=== PATIENT | male | born 1960 | race Caucasian/White ===

== ENCOUNTER 2017-11-05 06:14 | Inpatient (IN) ==
[2017-11-01 13:26] LABS: Blood Urea Nitrogen 14 mg/dl (6-20)
[2017-11-01 13:29] LABS: Basophils # (Auto) 0 K/mcL (0.0-0.3); Basophils % (Auto) 0.5 % (0.0-2.0); Eosinophils # (Auto) 0.1 K/mcL (0.0-0.7); Eosinophils % (Auto) 1.7 % (0.0-7.0); Granulocytes % (Auto) 51.2 % (38.0-78.0); Lymphocytes % (Auto) 26.2 % (15.5-49.0); Mean Cell Volume 95.1 fL (80.0-100.0); Mean Corpuscular HGB Conc 35.2 g/dL (31.0-36.0); Mean Corpuscular Hemoglobin 33.4 pg (26.0-34.0); Monocytes # (Auto) 0.8 K/mcL (0.1-0.9); Monocytes % (Auto) 20.4 % (1.0-12.0); Platelet Count 179 K/mcL (140-440); RBC 4.07 M/mcL (4.50-5.90); Red Cell Distribution Width 12.3 % (11.5-14.5)
[~2017-11-05 06:14] MED LIST: ACETAMINOPHEN 500 MG TABLET PO SCH; CELECOXIB 200 MG CAPSULE PO SCH; PREGABALIN 75 MG CAPSULE PO SCH; ceFAZolin 1 GM VIAL IV SCH; oxyCODONE 10 MG TAB.ER.12H PO SCH
[2017-11-05 08:18] LABS: Appearance,Urine CLEAR; Bilirubin,Urine NEG (NEG); Color,Urine YELLOW; Glucose,Urine (UA) NEGATIVE (NEG); Leukocyte Esterase,Urine NEG /uL (NEG); Nitrate,Urine NEG (NEG); Protein,Urine NEG (NEG); Specific Gravity,Urine 1.013 (1.000-1.035); Urine Blood NEG mg/dL (<0.03); Urobilinogen,Urine NEG (NEG)
[2017-11-05] MEDS ORDERED: KETOROLAC 30 MG, ROPIVACAINE HCL/PF 49.5 ML, EPINEPHrine 0.5 MG, 0.9 % SODIUM CHLORIDE ... IJ ONE (08:51)
[2017-11-05] MEDS ORDERED: GENTAMICIN SULFATE 800 MG/20 ML VIAL IR ONE (08:55)
[2017-11-05] MEDS ORDERED: TRANEXAMIC ACID 1,000 MG/10 ML VIAL IV ONE (09:45)
[2017-11-05] MEDS ORDERED: ePHEDrine 50 MG/ML AMPUL IV ONE (09:45)
[2017-11-05] MEDS ORDERED: fentaNYL 100 MCG/2 ML VIAL IV ONE (09:45)
[2017-11-05] MEDS ORDERED: DEXAMETHASONE 10 MG/ML VIAL IV ONE (09:45)
[2017-11-05] MEDS ORDERED: GLYCOPYRROLATE 0.2 MG/ML VIAL IV ONE (09:45)
[2017-11-05] MEDS ORDERED: PROPOFOL 200 MG/20 ML VIAL IV ONE (09:45)
[2017-11-05] MEDS ORDERED: PHENYLEPHRINE 10 MG/ML VIAL IV ONE (09:45)
[2017-11-05] MEDS ORDERED: ONDANSETRON 4 MG/2 ML VIAL IV ONE (09:45)
[2017-11-05] MEDS ORDERED: LIDOCAINE HCL/PF 100 MG/5 ML SYRINGE IV ONE (09:45)
[2017-11-05] MEDS ORDERED: MIDAZOLAM 2 MG/2 ML VIAL IV ONE (09:45)
[2017-11-05] MEDS ORDERED: LACTATED RINGERS 250 ML IV PRN (10:51)
[2017-11-05] MEDS ORDERED: MEPERIDINE 25 MG/ML SYRINGE IV PRN (10:51)
[2017-11-05] MEDS ORDERED: ONDANSETRON 4 MG/2 ML VIAL IV PRN ×2 (10:51→11:28)
[2017-11-05] MEDS ORDERED: fentaNYL 100 MCG/2 ML VIAL IV PRN (10:51)
[2017-11-05] MEDS ORDERED: PROMETHAZINE 25 MG/ML VIAL IV PRN (10:51)
[2017-11-05] MEDS ORDERED: ACETAMINOPHEN 1,000 MG/100 ML BOTTLE IV ONE (10:51)
[2017-11-05] MEDS ORDERED: IPRATROPIUM/ALBUTEROL 3 ML AMPUL.NEB NEB PRN (10:51)
[2017-11-05] MEDS ORDERED: NALOXONE HCL 0.4 MG/ML VIAL IV PRN (10:51)
[2017-11-05] MEDS ORDERED: FLUMAZENIL 0.1 MG/ML ML IV PRN (10:51)
[2017-11-05] MEDS ORDERED: LACTATED RINGERS 1,000 ML IV SCH (11:00)
[2017-11-05] MEDS ORDERED: BISACODYL 10 MG SUPP.RECT PR PRN (11:28)
[2017-11-05] MEDS ORDERED: HYDROmorphone 2 MG/ML SYRINGE IV PRN (11:28)
[2017-11-05] MEDS ORDERED: ACETAMINOPHEN 325 MG TABLET PO PRN (11:28)
[2017-11-05] MEDS ORDERED: POLYETHYLENE GLYCOL 3350 17 GM PACKET PO PRN (11:28)
[2017-11-05] MEDS ORDERED: MAGNESIUM HYDROXIDE 30 ML ORAL.SUSP PO PRN (11:28)
[2017-11-05] MEDS ORDERED: BENZOCAINE/MENTHOL 1 LOZENGE PO PRN (11:28)
[2017-11-05] MEDS ORDERED: KETOROLAC 15 MG/ML VIAL IV PRN (11:28)
[2017-11-05] MEDS ORDERED: FLEETS ADULT ENEMA PR PRN (11:28)
[2017-11-05] MEDS ORDERED: TRANEXAMIC ACID 1,000 MG/10 ML VIAL IV SCH (11:28)
[2017-11-05] MEDS ORDERED: 0.45 % SODIUM CHLORIDE 1,000 ML IV SCH (11:30)
[2017-11-05] MEDS ORDERED: HYDROCODONE/APAP 7.5/325MG TABLET PO PRN (11:33)
[2017-11-05] MEDS ORDERED: IBUPROFEN 800 MG TABLET PO PRN (11:33)
--- NOTE | 2017-11-05 12:04 | Operative Note ---
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 POSTOPERATIVE DIAGNOSIS: Left hip hardware hip pinning with arthritis. PROCEDURE: 1. Left total hip arthroplasty. 2. Hardware removal 3 George pins. SURGEON: Mele Camacho MD SALES OPERATIONS ASSISTANT: Dung Gongora PA-C ANESTHESIA: General LMA anesthesia. COMPLICATIONS: None. ESTIMATED BLOOD LOSS: About 50 mL DESCRIPTION OF PROCEDURE: The patient was brought to the operating room and put to sleep with general LMA anesthesia. Once we confirmed the operative site to be the left hip we then turned the patient in the right lateral position with a [employer] positioner. The left hip was sterile prepped and draped. We then made a posterior approach to the hip. Once done, we then irrigated thoroughly. We then incised into the IT band and superior posterior approach performed. We released the posterior capsule and dislocated the hip. The femoral head was then quartered using both saw and osteotome and then the three George pins were removed. One George pin was incompletely removed because it had been broken off. We irrigated thoroughly and then subluxed the hip anteriorly. We then reamed the acetabulum up to the size 53 and implanted a 54 cup with no screws. We then reamed up to the 53 and implanted a 54 cup. We placed a dual mobility liner, very stable, 40 degrees of inclination and 20 degrees of anteversion with the cup. We irrigated, removed some spurs off the anterior acetabulum. We then broached up on the femur to a size 4 and took a picture with a size 4 with neutral broach. Leg length was slightly longer. We then broached deeper and implanted a size 4 stem, a neutral neck length with a dual mobility liner with a ceramic head. We irrigated thoroughly and reduced the hip. It was very stable up to 80 degrees of internal rotation at 90 degrees of flexion and adduction. We irrigated thoroughly. We then closed the IT band and fascia with #1 Stratafix after thorough irrigation. We closed the skin with 2-0 Vicryl adhesive closure. The patient tolerated this well without complication. [id number]:[id number] Job ID: [id number] Doc ID: [id number] Mele Camacho MD
--- NOTE | 2017-11-05 12:15 | XRay Report ---
CLINICAL INFORMATION: Postop total hip prostheses COMPARISON: 10/30/2016 FINDINGS: Left total hip prostheses is in place. Femoral stem is anatomically aligned. There appears to be excessive lateral canting of the acetabular component. Older right total hip prostheses is anatomically aligned without loosening or infection. Small left thoracotomy ossification seen over the right superior extracapsular region. There is also an old partially united fracture of the right greater trochanter which is unchanged soft tissue swelling over the surgical site. IMPRESSION: Left total hip prostheses - new Interpreted and Authenticated by: Robert Kaur 11/05/17
[2017-11-05] MEDS: 0.9 % SODIUM CHLORIDE 10 ML SYRINGE IV SCH ×2 (13:15→20:29)
[2017-11-05] MEDS: 0.9 % SODIUM CHLORIDE 1,000 ML IV SCH (14:23)
[2017-11-05] MEDS: oxyCODONE/APAP 5/325MG TABLET PO PRN ×3 (14:23→22:19)
[2017-11-05] MEDS: FERROUS SULFATE 325 MG TABLET PO SCH (17:39)
[2017-11-05] MEDS: metFORMIN 500 MG TABLET PO SCH (17:39)
[2017-11-05] MEDS: ceFAZolin 1 GM VIAL IV SCH (17:39)
[2017-11-05] MEDS: DOCUSATE SODIUM 100 MG CAPSULE PO SCH (20:28)
[2017-11-05] MEDS: METOPROLOL SUCCINATE 50 MG TAB.XL.24H PO SCH (20:28)
[2017-11-05] MEDS: ASPIRIN 325 MG ENTERIC COATED TABLET PO SCH (20:29)
[2017-11-05] MEDS: LOSARTAN 50 MG TABLET PO SCH (20:29)
[2017-11-05] MEDS ORDERED: SIMVASTATIN 20 MG TABLET PO SCH (21:00)
[2017-11-05] MEDS ORDERED: SENNOSIDES 1 TABLET PO SCH (21:00)
[2017-11-05] MEDS ORDERED: TEMAZEPAM 15 MG CAPSULE PO PRN (21:00)
[2017-11-06] MEDS: 0.9 % SODIUM CHLORIDE 1,000 ML IV SCH (01:20)
[2017-11-06] MEDS: oxyCODONE/APAP 5/325MG TABLET PO PRN ×4 (02:11→14:07)
[2017-11-06] MEDS: ceFAZolin 1 GM VIAL IV SCH (02:12)
[2017-11-06] MEDS: 0.9 % SODIUM CHLORIDE 10 ML SYRINGE IV SCH ×2 (06:09→14:08)
--- NOTE | 2017-11-06 07:52 | Orthopedic Progress Note ---
Subjective Patient information: Note initiated : 11/06/17 at 7:51 am Service Date, if different from initiated Date: [] Patient: Dash Villanueva 56 y/o M admitted on 11/05/17 for Left Total Hip Arthroplasty. Chief Complaint: [Pt is stable this morning on post operative day 1 without any significant concerns or complaints. Patients vital signs have remained stable. Patients dressing is dry and exhibits a grossly intact neurovascular and neuromotor exam. Patients 10 point ROS is otherwise negative. ] Objective Vital signs: Vital Signs Temp Pulse Resp BP BP Pulse Ox 11/06/17 07:12 95 11/06/17 07:05 98.9 F 16 104/61 95 11/06/17 04:48 97 11/06/17 04:00 97.6 F 64 20 114/69 97 11/06/17 03:00 97 11/06/17 01:00 95 11/05/17 23:55 98.3 F 71 20 114/65 95 11/05/17 23:00 95 11/05/17 20:00 97.8 F 77 20 108/69 97 11/05/17 19:00 97 11/05/17 17:00 96 11/05/17 16:00 115/62 98 11/05/17 15:00 96 11/05/17 14:14 138/79 95 11/05/17 13:45 104/37 99 11/05/17 13:29 132/83 97 11/05/17 13:28 95 11/05/17 13:14 109/52 96 11/05/17 12:59 130/76 98 11/05/17 12:44 98 11/05/17 12:27 97.2 F 66 14 110/72 96 11/05/17 12:20 61 18 125/62 100 11/05/17 12:05 61 18 105/68 100 11/05/17 11:50 97.2 F 56 L 12 110/49 99 Intake and Output 11/05/17 11/06/17 11/06/17 21:59 05:59 13:59 Intake Total 1160 / 1160 1710 / 1710 800 / 800 Output Total 325 / 325 1750 / 1750 600 / 600 Balance 835 / 835 -40 / -40 200 / 200 Intake: Oral 1160 / 1160 1710 / 1710 800 / 800 Output: Void Amount 325 / 325 1750 / 1750 600 / 600 Other: Meal Dinner Percent of Meal Consumed 100% Feeding Ability Independent Weight 209 lb 8 oz Intake & Output: Intake & Output 11/05/17 11/06/17 11/06/17 21:59 05:59 13:59 Intake Total 1160 / 1160 1710 / 1710 800 / 800 Output Total 325 / 325 1750 / 1750 600 / 600 Balance 835 / 835 -40 / -40 200 / 200 Weight 209 lb 8 oz Intake: Oral 1160 / 1160 1710 / 1710 800 / 800 Output: Void Amount 325 / 325 1750 / 1750 600 / 600 Other: Meal Dinner Percent of Meal Consumed 100% Feeding Ability Independent Incision: Yes healing Incision clean and dry: Yes Dressing: Yes clean, Yes dry Weight bearing status: full Neurological exam IM: Yes motor sensory intact, Yes neurovascular intact Extremities exam IM: Yes Foot pink and warm, Yes neurovascular intact - Labs CBC & BMP: 11/06/17 04:40 11/01/17 11:28 Labs: Orthopedic Labs 11/01/17 11:28 PT 13.1 INR 1.0 APTT 26 11/06/17 11/01/17 04:40 11:29 Hgb 13.6 Hct 31.3 L 38.7 L Assessment and Plan (1) Hx of total hip arthroplasty The patient has been educated regarding dressing care, Physical Therapy recommendations, home exercises, restrictions, and follow up appointments. The patient has had all necessary DME prescribed. The patient has remained stable during their hospital course. The patient was discharge with a stable exam. Status: Acute
--- NOTE | 2017-11-06 07:54 | Discharge Summary ---
Ortho Discharge - [facility] - Patient Instructions Diet: Regular Diet Activity: activity as tolerated, weight bearing as tolerated Total Hip Protocol: Follow activity instructions as provided by Physical Therapy. Dressing Care: May shower in 2 days, Aquacel Ag - leave on for 5 days Patient Education: Total Hip Replacement (DC) - Problem Maintenance (1) Hx of total hip arthroplasty Status: Acute - Follow Up Plan Disposition: Home, Self-Care Prognosis: Good Rehab Potential: Good I certify that the patient requires SNF services: No Overall status at discharge: patient is progressing back to baseline - Orders For Discharge Prescriptions: Aspirin [Ecotrin] 325 mg PO BID #60 tab.ec Docusate Sodium [Colace] 100 mg PO BID #60 cap oxyCODONE/APAP [Percocet 5-325 mg] 1 - 2 tab PO Q4HP PRN #75 tab PRN Reason: Pain Level 3-6
[2017-11-06] MEDS: FERROUS SULFATE 325 MG TABLET PO SCH (08:47)
[2017-11-06] MEDS: LOSARTAN 50 MG TABLET PO SCH (08:53)
[2017-11-06] MEDS: ASPIRIN 325 MG ENTERIC COATED TABLET PO SCH (08:53)
[2017-11-06] MEDS: metFORMIN 500 MG TABLET PO SCH (08:53)
[2017-11-06] MEDS: METOPROLOL SUCCINATE 50 MG TAB.XL.24H PO SCH (08:53)
[2017-11-06] MEDS: DOCUSATE SODIUM 100 MG CAPSULE PO SCH (08:53)
[2017-11-06] MEDS ORDERED: ESCITALOPRAM 20 MG TABLET PO SCH (09:00)
[2017-11-06] MEDS ORDERED: HYDROCHLOROTHIAZIDE 25 MG TABLET PO SCH (09:00)
== END 2017-11-06 15:37 | disposition home or self-care (01) | DRG 470 ==
LOC: MEDSUR 06:14
PROVIDERS: ADMIT Orthopaedic Surgery; ATTEND Orthopaedic Surgery